=== PATIENT | male | born 1995 | race Caucasian/White ===

== ENCOUNTER 2016-03-24 19:54 | Inpatient (IN) | payer MEDICAID, OTHER ==
--- NOTE | 2016-03-24 20:16 | EDPHY ---
Mental Health General Previous Psychiatric History: substance abuse, depression Smoking Status: Current every day smoker Time Patient Placed on M1 Hold: 18:30 Time Medically Cleared for Psychiatric Evaluation: 22:51 Time of Transfer of Care: 00:15 To [address]:: Garret Course: patient remained stable over course of my shift, no additional interventions Narrative: CHIEF COMPLAINT: M1 hold HISTORY OF PRESENT ILLNESS: 20-year-old male presents emergency department on an M1 hold for suicidal thoughts. Patient reports he went to the crisis Center today for depression and they placed him on an M1 hold. Patient states he has had depression for the past 8 years and has never sought help. He reports auditory and visual hallucinations for the past 5 years. He states he has auditory hallucinations telling him to harm himself and others. Patient reports smoking marijuana regularly, he reports alcohol use rarely and he denies other drug use. Patient denies chest pain, shortness of breath, nausea, vomiting or diarrhea, no abdominal pain. Patient is homeless. REVIEW OF SYSTEMS: A comprehensive 10 point review of systems is otherwise negative aside from elements mentioned in the history of present illness. Physical Exam Gen: Alert and Oriented, NAD HEENT: PERRL, moist mucous membranes NECK: no meningismus CV: regular rate and regular rhythm PULM: CTAB, no wheezes ABDOMEN: soft, non tender to palpation, BS present BACK: No CVA tenderness NEURO: Neurologically grossly intact EXTREMITIES: normal appearing SKIN: no rash or break in skin on exposed skin PSYCH: Flat affect, does not make eye contact, reports suicidal ideations, auditory and visual hallucinations. (Elizabeth Parikh) [address] Fink pending mental health evaluation. [address] Poole pending disposition. No issues during my care of this patient. (Kannan Combs) Medical Decision Makin-Report passed on to Dr. Combs at the end of my shift pending eval. (Elizabeth Parikh) - Objective Vital Signs: Initial Vital Signs Temperature (C) 36.8 C 03/24/16 19:58 Heart Rate 89 03/24/16 19:58 Respiratory Rate 16 03/24/16 19:58 Blood Pressure 134/64 H 03/24/16 19:58 O2 Sat (%) 97 03/24/16 19:58 O2 Delivery Mode Room Air Allergies/Adverse Reactions: No Known Allergies Allergy (Unverified 03/24/16 19:57) Home Medications: Medication Instructions Recorded NK [No Known Home Meds] 03/24/16 Laboratory Results: Laboratory Results 03/24/16 22:05 03/24/16 22:05 03/24/16 03/24/16 22:05 21:30 WBC 5.94 10^3/uL (3.80-9.50) RBC 5.06 10^6/uL (4.40-6.38) Hgb 15.9 g/dL (13.7-17.5) Hct 44.2 % (40.0-51.0) MCV 87.4 fL (81.5-99.8) MCH 31.4 pg (27.9-34.1) MCHC 36.0 g/dL (32.4-36.7) RDW 12.7 % (11.5-15.2) Plt Count 191 10^3/uL (150-400) MPV 11.5 fL (8.7-11.7) Neut % (Auto) 39.8 % (39.3-74.2) Lymph % (Auto) 48.7 H % (15.0-45.0) Lyon % (Auto) 9.8 % (4.5-13.0) Eos % (Auto) 0.7 % (0.6-7.6) Baso % (Auto) 0.8 % (0.3-1.7) Nucleat RBC Rel Count 0.0 % (0.0-0.2) Absolute Neuts (auto) 2.37 10^3/uL (1.70-6.50) Absolute Lymphs (auto) 2.89 10^3/uL (1.00-3.00) Absolute Monos (auto) 0.58 10^3/uL (0.30-0.80) Absolute Eos (auto) 0.04 10^3/uL (0.03-0.40) Absolute Basos (auto) 0.05 10^3/uL (0.02-0.10) Absolute Nucleated RBC 0.00 10^3/uL (0-0.01) Immature Gran % 0.2 % (0.0-1.1) Immature Gran # 0.01 10^3/uL (0.00-0.10) Sodium 141 mEq/L (134-144) Potassium 4.0 mEq/L (3.5-5.2) Chloride 106 mEq/L (97-110) Carbon Dioxide 26 mEq/l (22-31) Anion Gap 9 mEq/L (8-16) BUN 11 mg/dL (7-23) Creatinine 0.9 mg/dL (0.7-1.3) Estimated GFR > 60 Glucose 98 mg/dL (70-100) Calcium 9.9 mg/dL (8.5-10.4) Salicylates < 1.0 L mg/dL (2.0-20.0) Urine Opiates Screen NEGATIVE (NEGATIVE) Acetaminophen < 10 L mcg/mL (10.0-30.0) Urine Barbiturates NEGATIVE (NEGATIVE) Ur Phencyclidine Scrn NEGATIVE (NEGATIVE) Ur Amphetamine Screen NEGATIVE (NEGATIVE) U Benzodiazepines Scrn NEGATIVE (NEGATIVE) Urine Cocaine Screen NEGATIVE (NEGATIVE) U Marijuana (THC) Screen NON-NEGATIVE H (NEGATIVE) Ethyl Alcohol < 10 mg/dL (0-10) Departure - Departure Condition: Good
[2016-03-24 22:12] LABS: % IMMATURE GRANULYOCYTES 0.2 % (0.0-1.1); ABSOLUTE IMMATURE GRANULOCYTES 0.01 10^3/uL (0.00-0.10); ADD DIFF? NO; ADD MORPH? NO; ADD SCAN? NO; ATYPICAL LYMPHOCYTE FLAG 10 (0-99); FRAGMENT RBC FLAG 0 (0-99); HEMATOCRIT 44.2 % (40.0-51.0); HEMOGLOBIN 15.9 g/dL (13.7-17.5); LEFT SHIFT FLG 0 (0-99); LIPEMIA HEMOLYSIS FLAG 90 (0-99); MEAN CELL HEMOGLOBIN 31.4 pg (27.9-34.1); MEAN CELL VOLUME 87.4 fL (81.5-99.8); MEAN PLATELET VOLUME 11.5 fL (8.7-11.7); PLATELET CLUMPS FLAG 0 (0-99); PLATELET COUNT 191 10^3/uL (150-400); RED BLOOD CELL COUNT 5.06 10^6/uL (4.40-6.38); RED CELL DISTRIBUTION WIDTH 12.7 % (11.5-15.2)
[2016-03-24 22:21] LABS: ANION GAP 9 mEq/L (8-16); CALCIUM 9.9 mg/dL (8.5-10.4); CARBON DIOXIDE 26 mEq/l (22-31); CHLORIDE 106 mEq/L (97-110); CREATININE 0.9 mg/dL (0.7-1.3); ETHANOL SERUM < 10 mg/dL (0-10); GLOMERULAR FILTRATION RATE > 60; GLUCOSE 98 mg/dL (70-100); SALICYLATE < 1.0 mg/dL (2.0-20.0); SODIUM 141 mEq/L (134-144)
[2016-03-25] MEDS ORDERED: ACETAMINOPHEN 325 MG TAB PO PRN (10:32)
[2016-03-25] MEDS ORDERED: NICOTINE POLACRILEX 2 MG GUM B PRN (10:32)
[2016-03-25] MEDS ORDERED: OLANZapine DISINTEGR 10 MG TAB PO PRN ×2 (10:32→13:04)
[2016-03-25] MEDS ORDERED: MAGNESIUM HYDROXIDE 30 ML UDCUP PO PRN (10:32)
[2016-03-25] MEDS ORDERED: MAG HYDROX/AL HYDROX/SIMETH 30 ML UDCUP PO PRN (10:32)
[2016-03-25] MEDS ORDERED: LORazepam 0.5 MG TAB PO PRN (10:32)
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
[2016-03-25] MEDS: OLANZapine 2.5 MG TAB PO SCH (20:46)
--- NOTE | 2016-03-26 08:56 | GCON ---
[f rep ] CONSULTATION [facility] MEDICINE CONSULTATION DATE OF CONSULTATION: 03/26/2016 REFERRING PHYSICIAN: Lakeisha Dale MD REASON FOR CONSULTATION: Inpatient behavioral health medical evaluation. HISTORY OF PRESENT ILLNESS: This is a 20-year-old male who presented to the emergency department wit h suicidal ideation and is currently on the behavior health unit with psychosis, NOS, rule out chroni c schizophrenia, with severe cannabis use disorder, who I have been asked to see in consultation. The patient tells me he has been in his usual state of health. Please refer to the comprehensive rev iew of systems below. He does report feeling quite depressed and has been losing weight ever since h e started hearing voices many years ago. He does use marijuana regularly. He denies any alcohol or other illicit drug use. PAST MEDICAL HISTORY: Scoliosis. PAST SURGICAL HISTORY: Denies. MEDICATIONS: Reviewed in [place] [facility]. ALLERGIES: No known drug allergies. SOCIAL HISTORY: The patient was born in [place], and his mother currently lives in [place]. He lindsay es any alcohol use. He uses marijuana daily. FAMILY HISTORY: Significant for bipolar disorder in his maternal aunt. REVIEW OF SYSTEMS: Comprehensive 10-point review of systems was done and is negative except for as m entioned in the HPI and below. CONSTITUTIONAL: Denies fevers, chills, night sweats. He does have s ome weight loss, which he attributes to hearing voices. HEENT: Reports a mild sore throat but no dy sphagia. CARDIOVASCULAR: No complaints. PULMONARY: No complaints. ABDOMINAL/GI: No complaints. SKIN: The patient reports an intermittent rash over his left collar bone. NEUROLOGIC: Denies any new numbness or weakness. PHYSICAL EXAM: VITAL SIGNS: Blood pressure 108/61, pulse 54, respiratory rate 14, O2 sat 98% on keli m air, temperature afebrile. GENERAL: No acute distress. HEAD: Normocephalic, atraumatic. EYES: PERRLA. Sclerae anicteric. MOUTH: Moist mucous membranes. NECK: Supple. No lymphadenopathy. C ARDIOVASCULAR: S1, S2. No JVD. No lower extremity edema. PULMONARY: Lungs are clear. No wheezes , rales, or rhonchi. ABDOMEN: Soft, nontender, nondistended. No guarding or rebound tenderness. N ormoactive bowel sounds. EXTREMITIES: No clubbing or cyanosis. NEURO: Cranial nerves 2-12 grossly intact. No focal motor or sensory deficits. SKIN: There is no rash noted over his left clavicle. LABORATORY TESTS: CBC reviewed and was unremarkable. Metabolic panel reviewed, which was unremarkab le. Urine tox screen negative for marijuana, negative for salicylates, acetaminophen, ethyl alcohol. ASSESSMENT/PLAN: 1. This is a 20-year-old male who has been admitted to the behavioral health unit for evaluation of psychosis, not otherwise specified, and to rule out schizophrenia. Plan: At this time, the patient appears to be medically appropriate for further treatment on [address] per the behavior health team. 2. Substance abuse with cannabis use disorder. 3. Plan: Recommend outpatient cessation counseling. 4. Reported mild pharyngitis. Plan: Recommend Tylenol as needed. Consider a rapid strep test if h is symptoms worsen. Thank you for allowing me to participate in the care of this patient. Please call the [facility] with any further questions regarding his care. /[id number]/MODL
--- NOTE | 2016-03-26 12:46 | SOAPPROG ---
SOAP Progress Note Assessment/Plan: Assessment: Pt is a 20 y/o S C male who reports AH and SI since adolescence who has never had any psych tx who was brought to the ED when he reported sx to the staff at the [facility]. Plan: Pt agrees to sign in vol when M1 is up and stay though weekend will continue Zyprexa 5mg QHS for psychosis 03/26/16 12:43 Subjective: "I'm doing okay." Objective: Vital Signs Temp Pulse Resp BP Pulse Ox 36.4 C 54 L 14 108/61 98 03/26/16 06:00 03/26/16 06:00 03/26/16 06:00 03/26/16 06:00 03/26/16 06:00 Pt is A+O x4 mood-euthymic affect-const no A/V + SI but contracts for safety thoughts-vague speech-wnl sleep-improved pt lying in bed-made aware of groups no HI + chronic Par I memory-fair I/J-fair - Time Spent With Patient Time Spent With Patient: 20' - Pending Discharge Pending Discharge Within 24 Hours: No Pending Discharge Within 48 Hours: No ICD10 Worksheet Patient Problems: Problems Problem Status Diagnosed Schizophrenia Acute - ICD10 Problem Qualifiers (1) Schizophrenia Qualifiers: Schizophrenia type: paranoid schizophrenia Qualified Description: Paranoid schizophrenia Qualifier Code(s): (F20.0) Paranoid schizophrenia
[2016-03-26] MEDS: OLANZapine 2.5 MG TAB PO SCH (21:10)
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
[2016-03-27] MEDS: OLANZapine DISINTEGR 10 MG TAB PO SCH (20:04)
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
[2016-03-28] MEDS: OLANZapine DISINTEGR 10 MG TAB PO SCH (20:55)
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
[2016-03-29] MEDS: OLANZapine DISINTEGR 10 MG TAB PO SCH (21:09)
[2016-03-30] MEDS ORDERED: OLANZapine DISINTEGR 10 MG TAB PO SCH
[2016-03-30 06:27] VITALS: BP 119/64; PULSE 56; RESP 12; TEMP 97.5; O2SAT 94
--- NOTE | 2016-04-04 20:37 | BDS ---
[f rep st] BEHAVIORAL HEALTH DISCHARGE SUMMARY Date of Admission 03/25/16 Date of D/C 03/30/16 CHIEF COMPLAINT: "I wanted to go to the youth detention, but they wanted me to be stable." HISTORY OF PRESENT ILLNESS: The patient is a 20-year-old single, , homeless male who presented to the ED on an M1 hold for suicidal thoughts. The patient went to the crisis center for depression, and they placed him on an M1 hold. The patient states he has had depression for 8 years and has never sought help. He reported auditory and visual hallucinations for the past 5 years. He states he has auditory hallucinations telling him to harm himself and others and reported chronic paranoia. The patient uses marijuana regularly , alcohol rarely, and no other drug use. The patient told the [facility] worker, "I was trying to get into a youth detention. On the intake form, I checked the boxes with thoughts of harming myself and the next thing I knew there were like 10 loading dock hand around." The patient reports he has been hiding his mental health problems since he was 12 and he did not want to hide them any more. The patient has no previous mental health treatment and no prior diagnosis. IMPRESSION: 1. Psychosis, not otherwise specified. 2. Rule out chronic schizophrenia. 3. Cannabis use disorder, severe. Rule out cannabis-induced psychosis. 4. History of scoliosis. 5. [place] V on admission was 20. HOSPITAL COURSE: The patient was started on 5 mg of Zyprexa at bedtime and Zyprexa p.r.n. and Ativan p.r.n. Zyprexa was then increased to a total of 10 mg q.h.s. fpr psychosis. The patient reported the medication helped him sleep and also decreased the auditory hallucinations and paranoia. He denied suicidal ideation throughout his hospitalization. He was eating and sleeping well. He participated in activities, groups, and was compliant with medication. He denied any side effects of medication. He signed in voluntarily when his M1 . On 03/29/16, he stated he wanted to leave the following day as he was ready to go, and he did not want to get a large hospital bill, and he was stable for discharge. He denied and AH, delusions or SI. MEDICATIONS ON DISCHARGE: Zyprexa 10 mg 1 tab at bedtime #30. MENTAL STATUS ON DISCHARGE: The patient is alert and oriented x4. Mood is euthymic. Affect is appropriate. Thoughts are logical and coherent. Speech is normal rate and rhythm. No auditory or visual hallucinations. No suicidal or homicidal ideation. The patient's is sleeping around 8 hours. Appetite and energy level are good. Memory/conc/CATHERINE/IQ are wnl. No paranoid ideation. Insight and judgment are improved. DIAGNOSES ON DISCHARGE: 1. Psychosis, not otherwise specified. 2. Rule out chronic schizophrenia. 3. Cannabis use disorder, severe. Rule out cannabis-induced psychosis. 4. History of scoliosis. 5. [place] V on admission was 20. It is difficult to tell if this patient has chronic schizophrenia due to his chronic cannabis abuse. This needs to be clarified as an outpatient. DISCHARGE PLAN: The patient was discharged voluntarily. He has an appointment with [facility] for 03/31/16. The patient reported he will stay with a friend that night. food manager gave him the information for the homeless detention. The patient was psychiatrically and medically stable for discharge. /[id number]/MODL MTDD
== END 2016-03-30 12:30 | disposition home or self-care (01) | DRG 885 ==
LOC: EDUNIT# → BBEH 03-25 09:50
PROVIDERS: ADMIT Psychiatry & Neurology Psychiatry; ATTEND Psychiatry & Neurology Psychiatry
DX: F29 Unspecified psychosis not due to a substance or known physiological condition (principal); F12.90 Cannabis use, unspecified, uncomplicated
CPT/HCPCS: 80305; G0480

== ENCOUNTER 2018-06-28 00:30 | Inpatient (IN) | payer MEDICAID, OTHER ==
[2018-06-28] MEDS ORDERED: MAG HYDROX/AL HYDROX/SIMETH 30 ML UDCUP PO PRN (01:05)
[2018-06-28] MEDS ORDERED: NICOTINE POLACRILEX 2 MG GUM B PRN (01:05)
[2018-06-28] MEDS ORDERED: MAGNESIUM HYDROXIDE 30 ML UDCUP PO PRN (01:05)
[2018-06-28] MEDS ORDERED: LORazepam 0.5 MG TAB PO PRN (01:05)
[2018-06-28] MEDS ORDERED: ACETAMINOPHEN 325 MG TAB PO PRN (01:05)
[2018-06-28] MEDS ORDERED: OLANZapine 5 MG TAB PO PRN (01:08)
[2018-06-28 08:33] LABS: PLATELET COUNT 202 10^3/uL (150-400)
--- NOTE | 2018-06-28 08:49 | GCON ---
[f rep st] CONSULTATION DATE OF CONSULTATION: 06/28/2018 REFERRING PHYSICIAN: Ezequiel Ivey MD REASON FOR CONSULTATION: Medical evaluation. HISTORY OF PRESENT ILLNESS: A 22-year-old male with history of depression, prior psychosis, presenti ng with suicidal ideations and visions of "blowing his brains out." He has felt very down over the l ast several weeks. Feels hopeless. He is currently living in the jail. Does not have family her e. Previously hospitalized at [facility] in 2017 with psychosis, NOS, and at that time he den ied suicidal ideations. REVIEW OF SYSTEMS: I completed a 10-point review of systems, negative except as noted in HPI. PAST MEDICAL HISTORY: Scoliosis, tobacco use, marijuana use. SURGERIES: None. SOCIAL HISTORY: Smokes marijuana and cigarettes. No alcohol since Hoover's Day. Currently livin g in a jail in [facility]. FAMILY HISTORY: No cancers. MEDICATIONS: None. ALLERGIES: None. PHYSICAL EXAM: VITAL SIGNS: Temperature 36.5, blood pressure 121/55, heart rate is in the 70s, resp irations 16, 99% on room air. In general, he is lying in bed in no acute distress. HEENT: PERRLA. Moist mucous membranes. CV is regular rate and rhythm. LUNGS: Clear. ABDOMEN: Soft, nontender. : No Pritchard. MUSCULOSKELETAL: He is moving all 4 extremities. NEURO: 2 through 12 intact. PSY CH: Alert and oriented x3. ASSESSMENT AND PLAN: 1. Suicidal ideations: He is currently having visions of using a gun. He is hospitalized in [facility] ent [facility] for further evaluation. Will defer to the team. 2. Tobacco dependence: Nicotine gum. 3. Marijuana use: Counseled on cessation. 4. Diet: Regular. Thank you for this consultation. Please call with any questions. /[id number]/MODL
--- NOTE | 2018-06-28 09:23 | ASMTBHMTP ---
Master Treatment Plan Master Treatment Plan Answers: Depressed Mood with for: Suicidal Ideation Date: 06/28/2018 Diagnosis on Admission: Unspecified Schizophrenia spectrum and other psychotic disorder (298.9/F29) Expected length of stay: 3-5 Reason for admission: Notes: Ct. is 22 [address] is homeless, unemployed. Ct. was referred to [facility] by [facility] staff after ct. reported he was going to buy a shotgun and "blow his brains out". As per [facility] intake paperwork ct is experiencing SI, thoughts of hurting or killing others, A/V hallucinations, symptoms of paranoia, anhedonia and symptoms of depression. Patient's stated presenting problems: Notes: "I came to [address] [place] [address] in 2017 and they diagnosed me with Bipolar and Schizophrenia and wanted to put me on medications. I ran away from treatment. I came back to [place] around [facility] and thought maybe I should give it another try". Patient's goals for treatment: Notes: "To become stable. Get my motivation back. Have three meals a day and a roof". Patient's strengths: Notes: "I don't know". Identify supports outside of hospital: Notes: "Few people at the [facility]". Discharge criteria: Notes: Suicidal ideations will resolve and ct. will have a plan to safely manage recurrent SI. Initial disposition plan/considerations: Notes: Ct. will return back home his routine and follow up care. Master Treatment Plan Required Signatures Psychiatrist signature: Answers: Psychiatrist: RN on-shift signature: Answers: RN: Patient signature: Answers: Patient: Date Signed: 06/28/2018 09:22 AM Electronically Signed By:Merle Diallo
--- NOTE | 2018-06-28 13:05 | BAPA ---
[f rep st] ADMISSION PSYCHIATRIC ASSESSMENT DATE OF SERVICE: 06/28/2018 CHIEF COMPLAINT: "I'm here because I went to the center on [address]. They thought I should come to the hospital because of the statements I was making to them." HISTORY OF PRESENT ILLNESS: The patient is homeless, currently unemployed, describes having [place] Medicaid insurance. Patient requests to become a patient at [facility] to work with a psychiatrist, therapist, and a rn case management. The patient was referred to the walk-in clinic after reportedly making statements that he was going to buy a shotgun and "blow his brains out." The patient reports a history of experiencing suicidal ideation. Also reports history of having thoughts of hurting or killing others, having auditory , visual hallucinations, symptoms of paranoia, depression. The patient has a history of being diagnosed with schizoaffective disorder, bipolar type. Was hospitalized at [address] in 2017. The patient reports being on Seroquel in the past, but reports he did not like the side effects. Made him feel "dopey." The patient reports this took the ability away for him to do things such as work and even cross the street. The patient reports he has been homeless for 3 years. The patient reported he has also been having homicidal ideation. Reports of history of this in the past. The patient does not provide any specifics. Patient is very vague in his report of his history of present illness, appears to be a poor historian. Patient reports he is currently not being treated for depression or psychosis. Reports being treated with Seroquel for these symptoms in the past. Patient reports he was kicked out of the homeless halfway in [place], because he would not take his medications as prescribed. It is unknown if this is valid at this time. PAST PSYCHIATRIC HISTORY: The patient has been hospitalized at [facility] for inpatient psychiatric treatment in the past. The patient was admitted on 2016, seen for psychiatric evaluation on 03/25/2016, and was discharged on 04/04. At that time, patient was discharged with a diagnosis of psychosis, not otherwise specified. Rule out chronic schizophrenia, Cannabis use disorder, severe. Rule out cannabis-induced psychosis. Note: Indicates history of scoliosis. The patient at that time was discharged voluntarily and had an appointment at [facility] on 03/31/2016. At that time, patient reported he was going to stay with a friend, and he was provided information for the homeless halfway. Medication at discharge was Zyprexa 10 mg p.o. q.h.s. We will continue to gather patient's psychiatric history throughout the course of the patient's hospitalization. ALLERGIES: No known allergies. CURRENT MEDICATIONS: 1. Tylenol 650 mg p.o. q.4 hours p.r.n. 2. Ativan 0.5 to 1 mg p.o. q.4 hours p.r.n. 3. Maalox syrup 30 mL p.o. q.6 hours p.r.n. 4. Milk of magnesia 30 mL p.o. daily p.r.n. 5. Nicorette 2 mg p.o. q.1 hour p.r.n. 6. Zyprexa 5 to 10 mg p.o. q.6 hours p.r.n. PAST MEDICAL HISTORY: From the discharge summary from 2016, reports history of scoliosis. The patient reports history of chronic back and knee pain. The patient reports never having received past treatment for scoliosis, and it is unknown at this time if that is a valid diagnosis from the patient's medical history. We will continue to gather patient's past medical history throughout the course of the patient's hospitalization. SOCIAL HISTORY: The patient is currently homeless. Reports that his mother and brother live in [place]. He also has an older brother who is currently in snf in [place]. The patient's father lives in [place]. The patient reports having no contact with his father. The patient reports he has had contact with his mother recently. The patient is currently unemployed. We will continue to gather patient's social history throughout the course of the patient's hospitalization. SUBSTANCE USE HISTORY: Patient reports a history of polysubstance abuse. However, reports he no longer uses drugs. Reports he smokes between 8 cigarettes and a pack of cigarettes per day and was recently smoking a gram of THC 15 out of the past 30 days. The patient reported he quit drinking alcohol on 's 2018. The patient reports he does have craving for alcohol, however, has been able to abstain from using alcohol. FAMILY PSYCHIATRIC HISTORY: Patient reports 2 paternal uncles have completed suicide, 1 by shooting himself, the other by huffing paint. The patient reports no family history of mental illness and no family history of substance abuse. ADMISSION LABS AND STUDIES: 1. CBC within normal limits except hemoglobin was low at 13.2, neutrophils were low at 35.6, lymphocytes elevated at 51.3, absolute neutrophils low at 1.632. 2. BMP within normal limits. 3. Hemoglobin A1c within normal limits at 5.7. 4. Liver function within normal limits. ALT and alkaline phosphatase are currently pending. 5. Lipid panel within normal limits. 6. Toxicology screen negative for all the substances that were screened. Alcohol blood level was not screened at time of admission. MENTAL STATUS EXAM: The patient presents casually dressed and with good hygiene , and looks stated age. Patient is sitting, posture is upright, and position is relaxed. Patient appears awake, alert, and responds appropriately and reasonably during interview. Patient is engaged, relates well to interviewer, and emotional facial expression is appropriate to situation and changes appropriately with topic. Patient is cooperative, makes comfortable eye contact , and movements are voluntary, deliberate, coordinated, and smooth and even with no inappropriate movements. Patient makes laryngeal sounds effortlessly and shares conversation appropriately; pace of conversation is appropriate, and stream of talking is fluent; articulation is clear and understandable; word choice is effortless and appropriate for education level; completes sentences, occasionally pausing to think; rate and volume are appropriate for interview and setting. Patient reports mood as euthymic. Patients affect is stable with full variable range, congruent with mood, and appropriate to speech and circumstances. Patient has linear and logical thinking, with no loose associations, tangential thought, thought blocking, concrete thinking, or any other signs of formal thought disorder. Patient denies suicidal and homicidal ideation, and denies hallucinations and delusions. Patient appears to be a reliable historian with sound judgement and good insight into current condition. Patient has no apparent dysfunction in recent or remote memory noted , and no evidence of gross cognitive dysfunction noted at any point during the interview. DIAGNOSES: Based on the patient's history and current presentation, patient's diagnosis is: 1. Depression, recurrent, severe. 2. Homelessness. 3. Cannabis use disorder, severe. FORMULATION: The patient is a 22-year-old male, single, currently unemployed, homeless, who presents to the hospital involuntarily due to risk to harm himself and is currently on an M1 hold. Patient requires continued inpatient care because of recent suicidal statements with a plan to complete suicide by gun. Patient presents with problems of ongoing depression. The patient's life has been affected by these problems, including the depression leading up to suicidal ideation with plan to complete suicide by gun. The patient reports a past psychiatric history of schizoaffective disorder, bipolar type, and schizophrenia. It is unknown at this time if these are valid diagnoses. We will continue to gather collateral throughout the course of the patient's hospitalization to inform diagnosis and treatment. The patient is a high suicide safety risk due to current depression and history of making suicidal threats, with a plan to complete suicide by gun prior to this admission. Protective factors while hospitalized include ongoing safety checks, active involvement in treatment, and support from our treatment team. The patient could benefit from inpatient hospitalization for safety, crisis stabilization, and medication evaluation. PLAN: 1. Medications: Patient reports he is not interested in medications at this time. We will continue to evaluate and educate patient on the benefits of medications. No other medication changes at this time as more time is needed to determine ongoing tolerability and efficacy. Plan is to continue to observe patient for response and side effects from medications, and ongoing monitoring and evaluation. 2. Review with patient informed consent and recommendations for psychotropic medication treatment listed below 3. Labs: no additional labs at this time 4. Therapy: continue milieu and group therapy 5. Further investigation including gathering information from patients relatives and review of past case records to inform treatment plan. 6. Safety/Wellness plan and follow-up outpatient appointments to be established prior to discharge. Next steps are for patient to meet with wound care center consultant to plan a safe discharge plan and establish outpatient services for ongoing treatment. 7. Confer with inpatient treatment team regarding treatment plan. 8. Address psychosocial stressors by meeting with care attendant to establish discharge plan including referrals for outpatient services. 9. Legal status: M1 10. Consider discharge this week if patient is in stable condition, safe, and has a safe discharge plan. ESTIMATED LENGTH OF STAY: 1-3 days PSYCHOTROPIC MEDICATION TREATMENT INFORMED CONSENT and RECOMMENDATIONS: Review nature of condition, diagnosis, and prognosis. Review nature and purpose of psychotropic medication treatment. Review type of psychotropic medications being ordered. Review risk and benefits of psychotropic medication treatment. Review probable length of time will need to take medications. Review risk and benefits of not undergoing psychotropic medication treatment. Review alternative treatments to psychotropic medications. Review psychotropic medications contraindications, drug-drug interactions, side effects, and importance of reporting any side effects to a psychiatric provider or nurse during inpatient hospitalization, and upon discharge to patients psychiatric outpatient provider, primary care provider, or other health critical care transport nurse. Review importance of asking a nurse, psychiatric provider, or primary care provider any questions or problems concerning the psychotropic medications. Verify patient understands the information that has been provided, and understands, accepts, and agrees to psychotropic medications. Review patients safety plan and importance of patient to communicate to staff while hospitalized if patient is ever a danger to self/others, or unable to care for self, and upon discharge, the importance for patient to contact [facility] or [facility], or go to the nearest emergency room, if patient is ever a danger to self/others, or unable to care for self. Recommend that upon discharge patient establish medication management treatment with a psychiatric provider, establishes routine therapy appointments, and follow-up with primary care provider. Verify patient understands and agrees to these recommendations. /[id number]/MODL MTDD
--- NOTE | 2018-06-28 15:16 | PDMN ---
Medical Necessity Medical necessity: [facility] [id number] Major Depressive Disorder, Adult: Inpatient Care, 3 days: 22 yo homeless pt w/ severe, recurrent depression on M1 hold for risk of harm to self. Admit IP status [facility] unit.
--- NOTE | 2018-06-29 09:23 | SOAPPROG ---
SOAP Progress Note Assessment/Plan: Assessment: Major Depressive Disorder, Severe, with anxious distress. Improvement noted. ( see subjective/objective note). Patient could benefit from continued inpatient hospitalization for crisis stabilization, safety, medication evaluation, and to establish safe discharge plan including follow-up appointments. Consider discharge this week. Plan: 1. Psychotropic medications: Patient reports preference for no medications at this time. No medications indicated. 2. Review with patient informed consent and recommendations for psychotropic medication treatment listed below 3. Labs: no additional at this time 4. Therapy: continue milieu and group therapy 5. Further investigation including gathering information from patients relatives and review of past case records to inform treatment plan. 6. Safety/Wellness plan and follow-up outpatient appointments to be established prior to discharge. Next steps are for patient to meet with day care worker to plan a safe discharge plan and establish outpatient services for ongoing treatment. 7. Confer with inpatient treatment team regarding treatment plan. 8. Psychosocial stressors addressed through casework specialist. 9. Legal status: M1 10. Consider discharge this week if patient is in stable condition, safe, and has a safe discharge plan. PSYCHOTROPIC MEDICATION TREATMENT INFORMED CONSENT and RECOMMENDATIONS: Review nature of condition, diagnosis, and prognosis. Review nature and purpose of psychotropic medication treatment. Review type of psychotropic medications being ordered. Review risk and benefits of psychotropic medication treatment. Review probable length of time patient will need to take medications. Review risk and benefits of not undergoing psychotropic medication treatment. Review alternative treatments to psychotropic medications. Review psychotropic medications contraindications, drug-drug interactions, side effects, and importance of reporting any side effects to a psychiatric provider or nurse during inpatient hospitalization, and upon discharge to patients psychiatric outpatient provider, primary care provider, or other health child care centre director. Review importance of asking a nurse, psychiatric provider, or primary care provider any questions or problems concerning the psychotropic medications. Verify patient understands the information that has been provided, and understands, accepts, and agrees to psychotropic medications. Review patients safety plan and importance of patient to report to staff while hospitalized if patient is ever a danger to self/others, or unable to care for self, and upon discharge, the importance for patient to contact [place] [facility] or 1, or go to the nearest emergency room, if patient is ever a danger to self/others, or unable to care for self. Recommend that upon discharge patient establish medication management treatment with a psychiatric provider, establishes routine therapy appointments, and follow-up with primary care provider. Verify patient understands and agrees to these recommendations. 06/29/18 09:21 Subjective: Following up with patient for evaluation of mood and safety. Patient reports, "Feeling better. Just needed to be here to stabilize." Objective: Vital Signs Temp Pulse Resp BP Pulse Ox 37 C 92 16 111/55 L 99 06/29/18 06:00 06/29/18 06:00 06/29/18 06:00 06/29/18 06:00 06/29/18 06:00 Laboratory Results 06/28/18 06:15 06/28/18 06:15 MSE: The patient is a well-nourished male looking stated chronological age. Attire is appropriate dress is hospital garb. Grooming status is appropriate. Ambulation is independent. Gait is normal and coordinated. Posture is normal. Eye contact is appropriate. Motor activity is appropriate with purposeful, organized, coordinated movements; with no involuntary movements. Attitude is cooperative. Patient appears attentive and relates well to this interviewer. Language production is spontaneous. R/R/V normal. Articulation is clear. Patient reports mood as okay with congruent affect. Patients thought process is linear and logical with no signs of thought disorder. Patient does not report suicidal/homicidal thoughts, ideas, or plans. Patient denies auditory, visual hallucinations. Patient denies delusions. Patient does not appear to be attending to internal stimuli. Patients attention and concentration are fair. Patient is oriented to person, place, time. Patients insight is poor. Patients judgment is poor. - Time Spent With Patient Time Spent With Patient: 15 minutes, met with patient individually. - Pending Discharge Pending Discharge Within 24 Hours: No Pending Discharge Within 48 Hours: No ICD10 Worksheet Patient Problems: Problems Problem Status Onset Schizophrenia Acute
--- NOTE | 2018-06-29 13:38 | ASMTBHDC ---
Notes Note: Notes: This headline writer attempted to scheduled transportation via [facility] for discharge from the hospital to the patient's outpatient appointment. This headline writer was told by Ana at [facility] "hospital discharge appointments can not be scheduled and have to be requested same day." Therefore, Ana refused to schedule an appointment and advised this headline writer to call three hours prior to the patient's appointment to guarantee a ride prior to the scheduled appointment time. After being transferred to the escalation team, Pia was able to make an exception and schedule this ride for July 03 @ 8:00 (confirmation # [id number]). Mental Health [address] [place] [address] O# [phone] Next appointment for intake assessment on July 03 with Keith @9:00. Date Signed: 06/29/2018 01:12 PM Electronically Signed By:Abigail Rodríguez
--- NOTE | 2018-06-30 08:46 | HOSPPROG ---
Hospitalist Progress Note Assessment/Plan: S: "reports itching on feet, groin, knees" O: Skin: mild erythema/scratches right dorsal foot. Spider bite right ankle A&P: 1. Groin itch: nystatin power 2. Concern for ringworm: didn't appreciate typical features. Can apply benadryl cream for itching Objective: Vital Signs Temp Pulse Resp BP Pulse Ox 36.8 C 85 16 110/57 L 97 06/30/18 06:00 06/30/18 06:00 06/30/18 06:00 06/30/18 06:00 06/30/18 06:00 Laboratory Results 06/28/18 06:15 06/28/18 06:15 ICD10 Worksheet Patient Problems: Problems Problem Status Onset Schizophrenia Acute
--- NOTE | 2018-06-30 08:46 | SOAPPROG ---
SOAP Progress Note Assessment/Plan: Assessment: Major Depressive Disorder, Severe, with anxious distress. Improvement noted. ( see subjective/objective note). Patient could benefit from continued inpatient hospitalization for crisis stabilization, safety, medication evaluation, and to establish safe discharge plan including follow-up appointments. Consider discharge Tuesday to intake appointment at [facility]. Plan: 1. Psychotropic medications: Patient reports preference for no medications at this time. No medications indicated currently. 2. Review with patient informed consent and recommendations for psychotropic medication treatment listed below 3. Labs: no additional at this time 4. Therapy: continue milieu and group therapy 5. Further investigation including gathering information from patients relatives and review of past case records to inform treatment plan. 6. Safety/Wellness plan and follow-up outpatient appointments to be established prior to discharge. Next steps are for patient to meet with career and transition teacher to plan a safe discharge plan and establish outpatient services for ongoing treatment. 7. Confer with inpatient treatment team regarding treatment plan. 8. Psychosocial stressors addressed through shoe caser. 9. Legal status: voluntary 10. Consider discharge this week if patient is in stable condition, safe, and has a safe discharge plan. PSYCHOTROPIC MEDICATION TREATMENT INFORMED CONSENT and RECOMMENDATIONS: Review nature of condition, diagnosis, and prognosis. Review nature and purpose of psychotropic medication treatment. Review type of psychotropic medications being ordered. Review risk and benefits of psychotropic medication treatment. Review probable length of time patient will need to take medications. Review risk and benefits of not undergoing psychotropic medication treatment. Review alternative treatments to psychotropic medications. Review psychotropic medications contraindications, drug-drug interactions, side effects, and importance of reporting any side effects to a psychiatric provider or nurse during inpatient hospitalization, and upon discharge to patients psychiatric outpatient provider, primary care provider, or other health care information associate. Review importance of asking a nurse, psychiatric provider, or primary care provider any questions or problems concerning the psychotropic medications. Verify patient understands the information that has been provided, and understands, accepts, and agrees to psychotropic medications. Review patients safety plan and importance of patient to report to staff while hospitalized if patient is ever a danger to self/others, or unable to care for self, and upon discharge, the importance for patient to contact [facility] or [facility], or go to the nearest emergency room, if patient is ever a danger to self/others, or unable to care for self. Recommend that upon discharge patient establish medication management treatment with a psychiatric provider, establishes routine therapy appointments, and follow-up with primary care provider. Verify patient understands and agrees to these recommendations. 06/30/18 08:44 Subjective: Following up with patient for evaluation of mood and safety. Patient reports, "Improving. Feel better now that I'm here getting stabilized." Objective: Vital Signs Temp Pulse Resp BP Pulse Ox 36.8 C 85 16 110/57 L 97 06/30/18 06:00 06/30/18 06:00 06/30/18 06:00 06/30/18 06:00 06/30/18 06:00 Laboratory Results 06/28/18 06:15 06/28/18 06:15 MSE: The patient is a well-nourished male looking stated chronological age. Attire is appropriate dress is hospital garb. Grooming status is appropriate. Ambulation is independent. Gait is normal and coordinated. Posture is normal. Eye contact is appropriate. Motor activity is appropriate with purposeful, organized, coordinated movements; with no involuntary movements. Attitude is cooperative. Patient appears attentive and relates well to this interviewer. Language production is spontaneous. R/R/V normal. Articulation is clear. Patient reports mood as okay with congruent affect. Patients thought process is linear and logical with no signs of thought disorder. Patient does not report suicidal/homicidal thoughts, ideas, or plans. Patient denies auditory, visual hallucinations. Patient denies delusions. Patient does not appear to be attending to internal stimuli. Patients attention and concentration are fair. Patient is oriented to person, place, time. Patients insight is poor. Patients judgment is poor. - Time Spent With Patient Time Spent With Patient: 15 minutes, met with patient individually. - Pending Discharge Pending Discharge Within 24 Hours: No Pending Discharge Within 48 Hours: No ICD10 Worksheet Patient Problems: Problems Problem Status Onset Schizophrenia Acute
[2018-06-30] MEDS ORDERED: LORazepam 0.5 MG TAB PO PRN (08:47)
[2018-06-30] MEDS: NYSTATIN POWDER 15 GM BTL TP SCH ×3 (13:06→20:48)
[2018-06-30] MEDS: DIPHENHYDRAMINE CREAM TP PRN (13:06)
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
[2018-07-01 07:02] VITALS: BP 103/58
[2018-07-01] MEDS: NYSTATIN POWDER 15 GM BTL TP SCH ×3 (09:45→19:06)
[2018-07-01] MEDS: DIPHENHYDRAMINE CREAM TP PRN (18:42)
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
[2018-07-02] MEDS: NYSTATIN POWDER 15 GM BTL TP SCH ×3 (09:16→22:02)
--- NOTE | 2018-07-02 20:24 | SOAPPROG ---
SOAP Progress Note Assessment/Plan: Assessment: 22yo homeless man admitted on M1 after reporting to staff at [facility] that he wanted to buy a shotgun and "blow my brains out." Plan: 07/01/18 20:42 1. Today, patient denying any thought, plan or intent to harm himself or anyone else. However, he does make distressing statements to JEOVANNY Esparza, that he can understand why people would commit mass murders. Patient denies he is making any plans or has any intent of hurting other people. He says he feels treated unfairly by society and understands why other people would want to get vengeance , but states that isn't what he wants to do. 2. Patient is homeless, but says he doesn't want to stay at homeless skilled nursing. He spoke to his [facility] and [facility] on phone, but doesn't think they can help him. He is trying to find a friend in [place] to stay with after d/c. 3. Hospitalist evaluated groin itch and prescribed Nystatin powder. 4. Patient told PMHNP, Clifford Kraft, that he didn't want medications. He declined meds for depression. Patient admits his depression is mostly d/t situational stressors, such as being homeless and not having any social support. 5. Voluntary patient 07/02/18 20:21 1. Patient says suicidal thoughts are "always there" and denies any intent or plan to act on them. 2. Plan to f/u with [facility] after discharge. 3. Voluntary Subjective: Patient presents congenial with bright affect, smiling while talking to MD. He would like to be able to shave. He says suicidal thoughts are "always there" in his mind, but says he has no intention to act on them. He says, "I don't want to do anything" like that. Objective: Vital Signs Temp Pulse Resp BP Pulse Ox 36.6 C 80 16 103/58 L 98 07/01/18 06:00 07/01/18 06:00 07/01/18 06:00 07/01/18 06:00 07/01/18 06:00 Laboratory Results 06/28/18 06:15 06/28/18 06:15 MSE: Affect: Bright Mood: "OK" TP: Linear TC: Says he is having "less" SI, but denies any intent or plan to act on his thoughts Insight/Judgment: Poor - Time Spent With Patient Time Spent With Patient: 15" - Pending Discharge Pending Discharge Within 24 Hours: Yes Pending Discharge Within 48 Hours: No Pending Discharge Date: 07/03/18 (Plan to d/c tomorrow to go to [facility] [[email or web address] appt) Pending Discharge Time: 11:00 ICD10 Worksheet Patient Problems: Problems Problem Status Onset Major depressive disorder, recurrent episode, severe with anxious distress Chronic
--- NOTE | 2018-07-03 08:30 | BDS ---
[f rep st] BEHAVIORAL HEALTH DISCHARGE SUMMARY REASON FOR ADMISSION: From the psychiatric assessment dated 06/28/2018, patient was admitted after presenting to the [facility] on [address] making suicidal statements. Patient also reported homicidal statements, auditory and visual hallucinations. Patient was admitted involuntarily and on an M1 hold due to being a danger to himself, others and for being gravely disabled due to a mental illness. Patient was admitted for safety, crisis stabilization, and medication management. ADMITTING DIAGNOSIS: Major depressive disorder, recurrent episode, severe, with anxious distress. ADMISSION PHYSICAL EXAM: The patient was seen on 06/28/2018 for history and physical consultation for medical clearance for inpatient psychiatric hospitalization and treatment. The patient was medically cleared for inpatient psychiatric hospitalization and treatment. For further details, please refer to consultation document dated 06/28/2018. ADMISSION LABS: 1. CBC noncontributory. 2. BMP within normal limits. 3. Hemoglobin A1c within normal limits at 5.7. 4. Liver function within normal limits. 5. Lipid panel within normal limits. 6. Toxicology screen non-negative for all the substances that were screened. THC result was 68 ng/mL. MAJOR PROCEDURES OR TESTS: None. HOSPITAL COURSE: The most prominent symptoms and behaviors while the patient was here were reports of mild anxiety and depression. The patient reported at time of initial evaluation that he was here for "a roof and 3 meals a day in order to get stabilized." Treatment modalities utilized were milieu and group therapy. The patient reported his preference was to not start any medications and no medications were indicated throughout the course of the patient's hospitalization. The patient will follow up at [facility] today at 9 a.m. for intake for services. At that time, will be determined if the patient needs ongoing medication evaluation and for therapy. Patient has improved considerably with no signs of psychiatric symptoms and no psychiatric symptoms expressed. Patient reports he has improved since admission, states to be in stable condition, feels safe to discharge, and he contracts for safety. Patients response to treatment was good. There were no adverse or unexpected results of treatment. The patient was safe throughout stay, active in treatment , engaged in groups, and was appropriate with staff. Patient met with treatment team prior to discharge to assess readiness to discharge and review discharge plan. The treatment team consensus is the patient in stable condition , has a safe discharge plan, and is ready to discharge today. CONDITION AT DISCHARGE: Patient is in stable condition and is no longer a danger to self or others, and is not gravely disabled due to mental illness. Patient is no longer in need of inpatient level of care, and can be safely and effectively treated within the community. The patients level of risk at time of discharge is low. MSE: The patient is casually dressed and with good hygiene , and looks stated age. Patient is sitting, posture is upright, and position is relaxed. Patient appears awake, alert, and responds appropriately and reasonably during interview. Patient is engaged, relates well to interviewer, and emotional facial expression is appropriate to situation and changes appropriately with topic. Patient is cooperative, makes comfortable eye contact , and movements are voluntary, deliberate, coordinated, and smooth and even with no inappropriate movements. Patient makes laryngeal sounds effortlessly and shares conversation appropriately; pace of conversation is appropriate, and stream of talking is fluent; articulation is clear and understandable; word choice is effortless and appropriate for education level; completes sentences, occasionally pausing to think; rate and volume are appropriate for interview and setting. Patient reports mood as euthymic. Patients affect is stable with full variable range, congruent with mood, and appropriate to speech and circumstances. Patient has linear and logical thinking, with no loose associations, tangential thought, thought blocking, concrete thinking, or any other signs of formal thought disorder. Patient denies suicidal and homicidal ideation, and denies hallucinations and delusions. Patient appears to be a reliable historian with sound judgement and good insight into current condition. Patient has no apparent dysfunction in recent or remote memory noted , and no evidence of gross cognitive dysfunction noted at any point during the interview. DISCHARGE DIAGNOSES: Major depressive disorder, recurrent episode, severe, with anxious distress. CURRENT MEDICATIONS: None. DISPOSITION: Patient left hospital independently and voluntarily with plans to go to [facility] today for an intake appointment at 9 a.m. Patient [facility] the [facility] [place]. FOLLOWUP: business services coordinator reports the appropriate outpatient follow-up services have been established and outpatient appointments have been scheduled. The patient received written instructions with times and dates of outpatient follow-up appointments. LEGAL COURSE: Patient was admitted on an M1 hold for involuntary inpatient psychiatric hospitalization. Patient discharged today independently and voluntarily. ATTITUDE AT TIME OF DISCHARGE: The patients attitude was positive at time of discharge, and patient reports looking forward to discharging today. The patient reports he feels safe to discharge, is no longer a danger to himself or others, is in stable condition, and contracts for safety. LABS AND STUDIES: There were no pending labs or studies at time of discharge. ADVANCE DIRECTIVES: There were no advance directives on file, and patient was full code during this hospitalization. /[id number] [id number]
== END 2018-07-03 07:58 | disposition home or self-care (01) | DRG 885 ==
LOC: BBEH 00:30
PROVIDERS: ADMIT Psychiatry & Neurology Behavioral Neurology & Neuropsychiatry; ATTEND Psychiatry & Neurology Behavioral Neurology & Neuropsychiatry
DX: F33.3 Major depressive disorder, recurrent, severe with psychotic symptoms (principal); T43.596A Underdosing of other antipsychotics and neuroleptics, initial encounter; F17.210 Nicotine dependence, cigarettes, uncomplicated; F12.90 Cannabis use, unspecified, uncomplicated; Z59.0 Homelessness
CPT/HCPCS: G0480